=== PATIENT | female | born 1930 | race Two or more races ===

== ENCOUNTER 2019-05-13 12:00 | Outpatient (CLI) | payer MEDICARE, BC | END 2019-05-13 23:59 | disposition home or self-care (01) | LOC: WOU 12:00 | PROVIDERS: ATTEND Surgery | DX: S81.811D Laceration without foreign body, right lower leg, subsequent encounter (principal); L03.115 Cellulitis of right lower limb; W19.XXXD Unspecified fall, subsequent encounter; I95.2 Hypotension due to drugs; T50.905A Adverse effect of unspecified drugs, medicaments and biological substances, initial encounter; Y92.89 Other specified places as the place of occurrence of the external cause | CPT/HCPCS: G0463 ==